=== PATIENT | male | born 1985 | race Caucasian/White ===

== ENCOUNTER → 2016-07-02 | Outpatient (CLI) | payer OTHER ==
--- NOTE | 2016-07-02 10:04 | FL ---
EXAMINATION TYPE: FL UGI air w esophagus DATE OF EXAM: 07/02/2016 9:31 AM COMPARISON: NONE HISTORY: Abdominal pain TECHNIQUE: A double contrast UGI study is performed. FINDINGS: [employer] image of the abdomen shows no gross abnormality. The esophagus shows normal motility and emptying into the stomach. Small hiatal hernia noted with mil d gastroesophageal reflux. No evidence for esophagitis. The stomach shows normal distensibility, peristalsis, and mucosal folds. No evidence of any mass or ulcer disease. No significant gastroesophageal reflux was seen during real time performance of this study. The duodenal bulb, sweep, and proximal small bowel loops are unremarkable. IMPRESSION: Small hiatal hernia noted with mild gastroesophageal reflux. No evidence for esophagitis .
== END ==
LOC: RADFLWHC 08:56
PROVIDERS: ATTEND Surgery
DX: K21.9 Gastro-esophageal reflux disease without esophagitis (principal); K44.9 Diaphragmatic hernia without obstruction or gangrene
CPT/HCPCS: 74246

== ENCOUNTER → 2016-07-02 | Outpatient (CLI) | payer OTHER ==
--- NOTE | 2016-07-02 09:31 | ECHOF ---
Referral Reason:R07.89 chest pain MEASUREMENTS -------- HEIGHT: 162.6 cm WEIGHT: 111.1 kg BP: IVSd: 1.4 cm (0.6 - 1.1) LVIDd: 4.0 cm (3.9 - 5.3) LVPWd: 1.2 cm (0.6 - 1.1) IVSs: 1.5 cm LVIDs: 4.3 cm LVPWs: 1.3 cm Ao Diam: 3.0 cm (2.0 - 3.7) AV Cusp: 2.4 cm (1.5 - 2.6) LA Diam: 4.2 cm (2.7 - 3.8) MV EXCURSION: 21.757 mm (> 18.000) MV EF SLOPE: 119 mm/s (70 - 150) EPSS: 1.1 cm MV E Raza: 0.78 m/s MV DecT: 161 ms MV A Raza: 0.60 m/s MV E/A Ratio: 1.31 RAP: 5.00 mmHg RVSP: 11.33 mmHg FINDINGS -------- Sinus rhythm. This was a technically adequate study. There is mild concentric left ventricular hypertrophy. Overall left ventricular systolic function is normal with, an EF between 55 - 60 %. The right ventricle is normal in size. The left atrium is mildly dilated. The right atrial size is normal. There is mild aortic valve sclerosis. There is no evidence of aortic regurgitation. Mild mitral annular calcification present. Mild mitral regurgitation is present. Mild tricuspid regurgitation present. There is no evidence of pulmonary hypertension. The right ventricular systolic pressure, as measured by Doppler, is 11.33mmHg. There is no pulmonic regurgitation present. The aortic root size is normal. There is no pericardial effusion. CONCLUSIONS -------- 1. There is mild concentric left ventricular hypertrophy. 2. Overall left ventricular systolic function is normal with, an EF between 55 - 60 %. 3. The left atrium is mildly dilated. 4. There is mild aortic valve sclerosis. 5. Mild mitral annular calcification present. 6. Mild mitral regurgitation is present. 7. Mild tricuspid regurgitation present. 8. There is no evidence of pulmonary hypertension. 9. The right ventricular systolic pressure, as measured by Doppler, is 11.33mmHg. SACK DEPARTMENT SUPERVISOR: Valery Guzman RDCS
== END | disposition home or self-care (01) ==
LOC: RADECHMAIN 08:04
PROVIDERS: ATTEND Family Medicine
DX: I34.0 Nonrheumatic mitral (valve) insufficiency (principal); I07.1 Rheumatic tricuspid insufficiency; I35.8 Other nonrheumatic aortic valve disorders
CPT/HCPCS: 93306

== ENCOUNTER → 2018-01-01 | Outpatient (CLI) | payer BC ==
--- NOTE | 2018-01-01 09:03 | US ---
EXAMINATION TYPE: US liver DATE OF EXAM: 01/01/2018 COMPARISON: NONE CLINICAL HISTORY: 32-year-old male R74.8 abnormal levels of other serum enzymes. Elevated liver enzym es TECHNIQUE: Multiple sonographic images of the right upper quadrant are obtained. FINDINGS: EXAM MEASUREMENTS: Liver Length: 16.4 cm Gallbladder Wall: 0.1 cm CBD: 0.3 cm Right Kidney: 10.2 x 4.9 x 4.7 cm Pancreas: Only a small portion of the pancreatic neck is seen. Remainder is obscured by bowel gas. Liver: Slightly coarsened, echogenic appearance. Scanned intercostally, limited by rib shadowing. No focal lesion seen. Gallbladder: wnl Evidence for sonographic Salcido's sign: no CBD: visualized portions wnl, limited by overlying bowel gas Right Kidney: No hydronephrosis. IMPRESSION: 1. Intercostal scanning of the liver limits assessment. It has a slightly coarsened, echogenic appear ance that could represent fatty infiltration or other nonspecific hepatocellular disease. 2. No biliary ductal dilatation.
== END | disposition home or self-care (01) ==
LOC: RADUSWWP 07:00
PROVIDERS: ATTEND Family Medicine
DX: R74.8 Abnormal levels of other serum enzymes (principal)
CPT/HCPCS: 76705

== ENCOUNTER 2018-06-26 23:22 | Observation (INO) | payer BC ==
[2018-06-27 00:03] LABS: Basophils # (A) 0.1 k/uL (0-0.2); Basophils % (A) 1 %; Eosinophils # (A) 0.4 k/uL (0-0.7); Eosinophils % (A) 5 %; HCT 44.2 % (39.0-53.0); Lymphocytes # (A) 2.6 k/uL (1.0-4.8); Lymphocytes % (A) 32 %; MCH 28.6 pg (25.0-35.0); MCHC 33.9 g/dL (31.0-37.0); MCV 84.4 fL (80.0-100.0); Mean Platelet Volume 6.5; Monocytes # (A) 0.5 k/uL (0-1.0); Monocytes % (A) 6 %; Neutrophils # (A) 4.4 k/uL (1.3-7.7); Neutrophils % (A) 54 %; Platelet Count 396 k/uL (150-450); RBC 5.24 m/uL (4.30-5.90); RDW 13.2 % (11.5-15.5)
[2018-06-27 00:12] LABS: ALT 50 U/L (21-72); AST 22 U/L (17-59); Albumin 4.2 g/dL (3.5-5.0); Alkaline Phosphatase 77 U/L (38-126); Anion Gap 10 mmol/L; Blood Urea Nitrogen 18 mg/dL (9-20); Calcium 9.5 mg/dL (8.4-10.2); Carbon Dioxide 23 mmol/L (22-30); Chloride 106 mmol/L (98-107); Glucose 103 mg/dL (74-99); Potassium 4.2 mmol/L (3.5-5.1); Sodium 139 mmol/L (137-145); Total Bilirubin 0.4 mg/dL (0.2-1.3); Total Protein 7.4 g/dL (6.3-8.2)
[2018-06-27 00:15] LABS: Partial Thromboplastin Time 26.6 sec (22.0-30.0); Prothrombin Time 10.3 sec (9.0-12.0)
--- NOTE | 2018-06-27 00:54 | ED ---
Chest Pain HPI - General Chief Complaint: Chest Pain Stated Complaint: SOB/Chest pain Time Seen by Provider: 06/26/18 23:38 Source: patient, RN notes reviewed, old records reviewed Mode of arrival: ambulatory Limitations: no limitations - History of Present Illness Initial Comments: This is a 32 year old male to the ED for evaluation of chest pain. Patient has no history of chest pain. Patient has history of high blood pressure. Strong family history of heart disease. Patient recently seen family doctor is having chest pain for 2 weeks with exertional shortness of breath. No travel history no sick contacts. No cough or congestion - Related Data Allergies Allergy/AdvReac Type Severity Reaction Status Date / Time No Known Allergies Allergy Verified 06/26/18 23:30 Review of Systems ROS Statement: Those systems with pertinent positive or pertinent negative responses have been documented in the HPI. ROS Other: All systems not noted in ROS Statement are negative. EKG Findings - EKG Comments: EKG Findings:: EKG shows normal sinus rhythm Past Medical History Past Medical History: Hypertension History of Any Multi-Drug Resistant Organisms: None Reported Past Surgical History: Orthopedic Surgery Additional Past Surgical History / Comment(s): gastro Past Psychological History: No Psychological Hx Reported Smoking Status: Light tobacco smoker Past Alcohol Use History: Occasional Past Drug Use History: None Reported General Exam Limitations: no limitations General appearance: alert, in no apparent distress Head exam: Present: atraumatic, normocephalic, normal inspection Eye exam: Present: normal appearance, PERRL, EOMI. Absent: scleral icterus, conjunctival injection, periorbital swelling ENT exam: Present: normal exam, mucous membranes moist Neck exam: Present: normal inspection. Absent: tenderness, meningismus, lymphadenopathy Respiratory exam: Present: normal lung sounds bilaterally. Absent: respiratory distress, wheezes, rales, rhonchi, stridor Cardiovascular Exam: Present: regular rate, normal rhythm, normal heart sounds. Absent: systolic murmur, diastolic murmur, rubs, gallop, clicks GI/Abdominal exam: Present: soft, normal bowel sounds. Absent: distended, tenderness, guarding, rebound, rigid Extremities exam: Present: normal inspection, full ROM, normal capillary refill. Absent: tenderness, pedal edema, joint swelling, calf tenderness Back exam: Present: normal inspection Neurological exam: Present: alert, oriented X3, CN II-XII intact Psychiatric exam: Present: normal affect, normal mood Skin exam: Present: warm, dry, intact, normal color. Absent: rash Course Vital Signs 06/26/18 23:24 Temperature 98.4 F Pulse Rate 70 Respiratory 18 Rate Blood Pressure 146/96 O2 Sat by Pulse 99 Oximetry - Reevaluation(s) Reevaluation #1: 06/27/18 00:53 Medical record is reviewed including prior x-ray Reevaluation #2: 06/27/18 00:53 A she is still complaining of chest pain Chest Pain MDM - MDM 32 male the ER with persistent chest pain chest pain shortness of breath on exertion. Patient will be admitted at this time for cardiac observation Critical Care Time Critical Care Time: Yes Total Critical Care Time: 31 Disposition Clinical Impression: Chest pain Disposition: ADMITTED IP TO THIS HOSP Condition: Undetermined Instructions (If sedation given, give patient instructions): Chest Pain (ED) Referrals: Rajendra Givens DO [Primary Care Provider] - 1-2 days
[2018-06-27] MEDS ORDERED: NITROGLYCERIN SL TABS 0.4 MG TAB SUBLINGUAL PRN (00:56)
[2018-06-27] MEDS ORDERED: ASPIRIN 81 MG PO STA (01:11)
[2018-06-27] MEDS ORDERED: SODIUM CHLORIDE 0.9% 1,000 ML IV SCH (01:15)
[2018-06-27] MEDS: LOSARTAN 50 MG TAB PO SCH (10:41)
--- NOTE | 2018-06-27 12:04 | P.CRDCN ---
History of Present Illness History of present illness: This is a pleasant 32-year-old male past medical history significant for hypertension, gastroesophageal reflux disease and asthma. He also chews tobacco daily. He denies history of coronary artery disease, dyslipidemia or diabetes mellitus. We have been asked to see him in consultation for symptoms of chest discomfort. He states for the previous couple of weeks off and on intermittently he is having symptoms of heavy pressure sensation in the midsternal region. Yesterday he woke up in his normal state of health and went to work. He was sitting down at his desk in front of his computer screen when he again had an episode of heavy pressure sensation in the midsternal region. There was some radiation to the left arm with numbness and tingling in his hand. He also describes feeling mildly short of breath, having a headache and blurred vision. He states his blood pressure has been elevated and recently saw his primary care physician and his Toprol was doubled from 25-50 mg daily. He called his primary care physician and was able to make an appointment to get in. He states that he went there is blood pressure was again elevated. He underwent an EKG that he was told was abnormal that he had suffered a heart attack in the past. He was sent here for a chest xray that was normal. While he was here for that he again had another episode of chest pain and pressure. He is seen and examined resting comfortably in bed in no acute distress with family at the bedside. He is currently chest pain free. EKG reveals sinus mechanism with no acute ST or T wave abnormalities noted. Chest x-ray is negative for acute cardiopulmonary process. Laboratory data reviewed, WBC 8, hemoglobin 15, platelets 396, d-dimer 0.2, sodium 139, potassium 4.2, creatinine 0.81, magnesium 2.0, cardiac enzymes negative 2, NT proBNP less than 11. Current cardiac medications include Toprol 50 mg daily and aspirin 81 mg daily. Most recent stress test performed 2016 was negative for stress-induced cardiac ischemia. Echocardiogram obtained 2016 reveals preserved left ventricular systolic function with ejection fraction 55-60%. At the time of my exam: CONSTITUTIONAL: Denies fever. Denies chills. EYES: Denies blurred vision. Denies vision changes. Denies eye pain. EARS, NOSE, MOUTH & THROAT: Denies headache. Denies sore throat. Denies ear pain. CARDIOVASCULAR: Denies chest pain. Denies shortness of breath. Denies orthopnea. Denies PND. Denies palpitations. RESPIRATORY: Denies cough. GASTROINTESTINAL: Denies abdominal pain. Denies diarrhea. Denies constipation. Denies nausea. Denies vomiting. MUSCULOSKELETAL: Denies myalgias. INTEGUMENTARY: Denies pruitis. Denies rash. NEUROLOGIC: Denies numbness. Denies tingling. Denies weakness. PSYCHIATRIC: Denies anxiety. Denies depression. ENDOCRINE: Denies fatigue. Denies weight change. Denies polydipsia. Denies polyurina. GENITOURINARY: Denies burning, hematuria or urgency with micturation. HEMATOLOGIC: Denies history of anemia. Denies bleeding. Blood pressure 138/90 heart rate 60 afebrile maintaining oxygen saturation on room air GENERAL: This is a 32-year-old occasion male in no apparent distress at the time of my examination. Obese. HEENT: Head is atraumatic, normocephalic. Pupils are equal, round. Sclerae anicteric. Conjunctivae are clear. Mucous membranes of the mouth are moist. Neck is supple. There is no jugular venous distention. No carotid bruit is heard. LUNGS: Clear to auscultation no wheezes, rales or rhonchi. No chest wall tenderness is noted on palpation or with deep breathing. HEART: Regular rate and rhythm without murmurs, rubs or gallops. S1 and S2 heard. ABDOMEN: Soft, nontender. Bowel sounds are heard. No organomegaly noted. EXTREMITIES: No evidence of peripheral edema and no calf tenderness noted. VASCULAR: Radial and dorsalis pedis pulses palpated, no evidence of clubbing. NEUROLOGIC: Patient is awake, alert and oriented x3. ASSESSMENT Chest pain, atypical. An acute coronary event has been ruled out. Hypertension, uncontrolled on toprol Obesity, BMI 34 Chronic nicotine dependence PLAN Acute coronary event has ruled out. Obtain 2-D echocardiogram and Doppler study to assess cardiac structure and function. Hold Toprol and add losartan 50 mg daily for blood pressure control. Will pursue stress testing as an outpatient once blood pressure is under better control. Thank you kindly for this consultation. Nurse Practitioner note has been reviewed, I agree with a documented findings and plan of care. Patient was seen and examined. Past Medical History Past Medical History: Asthma, GERD/Reflux, Hypertension Additional Past Medical History / Comment(s): Asthma as a child, heart murmur as a child, small hiatal hernia, esophageal stricture. History of Any Multi-Drug Resistant Organisms: None Reported Past Surgical History: Orthopedic Surgery Additional Past Surgical History / Comment(s): EGD with dilation, L rotator cuff repair, L ankle fracture with screws since removed. Additional Past Anesthesia/Blood Transfusion Reaction / Comment(s): When L ankle screws were removed, pt states they had a hard time getting him to sleep for surgery. Smoking Status: Never smoker - Past Family History Father Family Medical History: Diabetes Mellitus Additional Family Medical History / Comment(s): Paternal grandfather had MIs with the first one happening when he was 40 yrs old. He ended up having a heart transplant. Pts Great grandfather had a DC but pt does not know at what age. Mother Family Medical History: No Reported History Additional Family Medical History / Comment(s): Mother is healthy. Medications and Allergies Home Medications Medication Instructions Recorded Confirmed Type Aspirin EC [Ecotrin Low Dose] 81 mg PO DAILY 06/27/18 06/27/18 History Metoprolol Succinate (ER) [Toprol 50 mg PO DAILY 06/27/18 06/27/18 History Xl] Allergies Allergy/AdvReac Type Severity Reaction Status Date / Time No Known Allergies Allergy Verified 06/27/18 07:05 Physical Exam Vitals: Vital Signs Temp Pulse Pulse Resp BP BP Pulse Ox 06/27/18 08:20 60 18 138/90 97 06/27/18 06:58 62 16 139/88 96 06/27/18 04:21 97.9 F 58 L 16 140/92 98 06/27/18 01:16 131/91 06/26/18 23:24 98.4 F 70 18 146/96 99 Intake and Output 06/26/18 06/27/18 06/27/18 22:59 06:59 14:59 Other: Weight 111.13 kg Results 06/26/18 23:10 06/26/18 23:10 Cardiac Enzymes 06/26/18 06/26/18 06/27/18 Range/Units 23:10 23:10 05:49 AST 22 (17-59) U/L Troponin I <0.012 <0.012 (0.000-0.034) ng/mL Coagulation 06/26/18 Range/Units 23:10 PT 10.3 (9.0-12.0) sec APTT 26.6 (22.0-30.0) sec CBC 06/26/18 Range/Units 23:10 WBC 8.0 (3.8-10.6) k/uL RBC 5.24 (4.30-5.90) m/uL Hgb 15.0 (13.0-17.5) gm/dL Hct 44.2 (39.0-53.0) % Plt Count 396 (150-450) k/uL Comprehensive Metabolic Panel 06/26/18 Range/Units 23:10 Sodium 139 (137-145) mmol/L Potassium 4.2 (3.5-5.1) mmol/L Chloride 106 (98-107) mmol/L Carbon Dioxide 23 (22-30) mmol/L BUN 18 (9-20) mg/dL Creatinine 0.81 (0.66-1.25) mg/dL Glucose 103 H (74-99) mg/dL Calcium 9.5 (8.4-10.2) mg/dL AST 22 (17-59) U/L ALT 50 (21-72) U/L Alkaline Phosphatase 77 (38-126) U/L Total Protein 7.4 (6.3-8.2) g/dL Albumin 4.2 (3.5-5.0) g/dL Current Medications Generic Name Dose Route Start Last Admin Trade Name Freq PRN Reason Stop Dose Admin Aspirin 325 mg 06/28/18 09:00 Aspirin PO DAILY ERIN Sodium Chloride 1,000 mls @ 20 mls/hr 06/27/18 01:15 06/27/18 07:38 Saline 0.9% IV 20 mls/hr .Q24H ERIN Administration Losartan Potassium 50 mg 06/27/18 10:15 06/27/18 10:41 Cozaar PO 50 mg DAILY ERIN Administration Nitroglycerin 0.4 mg 06/27/18 00:56 Nitrostat SUBLINGUAL Q5M PRN Chest Pain Intake and Output 06/26/18 06/27/18 06/27/18 22:59 06:59 14:59 Other: Weight 111.13 kg 06/26/18 23:10 06/26/18 23:10
--- NOTE | 2018-06-27 16:43 | MR ---
EXAMINATION TYPE: MR brain and iac wo/w con DATE OF EXAM: 06/27/2018 COMPARISON: None HISTORY: headache,visual changes, left arm numbness TECHNIQUE: Multiplanar, multisequence images of the brain and brainstem is performed without and with IV contras t, utilizing 11.5 mL intravenous Gadavist . Small [id number], high-resolution images obtained thro [facility] the internal auditory canals FINDINGS: Diffusion weighted images demonstrate no evidence of a recent infarct or other diffusion ab normality. There is no extra-axial fluid collection. Punctate hyperintensities in the right frontal lobe are present on inversion recovery T2-weighted sequences, 4 lesions are present, largest lesion m easures 3 mm. The ventricular system and cisternal spaces are normal in size and appearance. The bra in volume is age appropriate. Midline structures demonstrate normal morphology, there is a partially empty sella. The craniocervic al junction appears within normal limits. Internal auditory canals show no abnormal enhancement. Pos t contrast images demonstrate no abnormal enhancement. The dural venous sinuses appear patent. The vi sualized sinuses are remarkable for inflammatory change within the ethmoid air cells, left maxillary sinus and the globes are intact. IMPRESSION: Nonspecific foci of white demyelination of questionable clinical significance, findings c ould be related to migraine headaches, hypertension, vasculitis, multiple sclerosis not excluded. Mil d sinus disease. No cerebellopontine angle mass, internal auditory canals are normal.
--- NOTE | 2018-06-27 17:26 | HP ---
HISTORY AND PHYSICAL DATE OF ADMISSION: 06/27/2018 DATE OF SERVICE: 06/27/2018 PRESENTING COMPLAINT: Chest pain. HISTORY OF PRESENTING COMPLAINT: This is a very pleasant 32-year-old patient of Dr. Rajendra Givens who is normally in good health. Patient does take medication for blood pressure. Patient about 6:00 in the morning had gone to work and felt left-sided chest pressure, felt like a sharp pain, something like an elephant sitting on the chest. He also had some discomfort in the left arm. The patient a week ago had some headache on and off, not interfering with work, and he thought that maybe also his vision was involved. There was no fever, no chills. He does feel tired. Blood pressure was running high, 160/110. Because of his multitude of symptoms, he decided to come in. Cardiology was consulted. The patient has no focal symptoms right now. No weakness. Able to get about and do his work. Denies use of any recreational drugs. No fever. No chills. REVIEW OF SYSTEMS: CONSTITUTIONAL: None. HEENT: As above. RESPIRATORY: None. CARDIOVASCULAR: As above. GASTROINTESTINAL: None. GENITOURINARY: None. MUSCULOSKELETAL: None. DERMATOLOGICAL: None. HEMATOLOGICAL: None. LYMPHATICS: None. PSYCHIATRY: None. NEUROLOGICAL: As above. PAST MEDICAL HISTORY: 1. Asthma. 2. GERD. 3. Hypertension. 4. Asthma as a child. 5. Small hiatal hernia. 6. Esophageal stricture. PAST SURGICAL HISTORY: 1. EGD with dilatation. 2. Left rotator cuff repair. 3. Left ankle fracture with screws. SOCIAL HISTORY: with 2 children. No smoking. Does chew tobacco. No recreational drugs. 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 FAMILY HISTORY: Grandfather had heart attacks. HOME MEDICATIONS: 1. Toprol XL 50 mg a day. 2. Aspirin 81 mg a day. ALLERGIES: NONE. PHYSICAL EXAMINATION: VITAL SIGNS ON PRESENTATION: Temperature 98.4, pulse 70, respiration 18, blood pressure 146/96, pulse 99% on room air. GENERAL APPEARANCE: Well built; BMI 34.2. Sitting up, comfortable. EYES: Pupils equal. Conjunctivae normal. HEENT: External appearance of nose and ears normal. Oral cavity normal. NECK: JVD not raised. Mass not palpable. RESPIRATORY: Effort normal. Lungs are clear. CARDIOVASCULAR: First and second sounds normal. No edema. ABDOMEN: Soft, non-tender. Liver and spleen not palpable. LYMPHATIC: No lymph node palpable in neck or axillae. PSYCHIATRY: Alert and oriented x3. Mood and affect normal. NEUROLOGICAL: Pupils equal. Cranial nerves grossly intact. Power and sensation grossly intact. INVESTIGATIONS: White count 8, hemoglobin 15.0, potassium 4.2. BUN and creatinine are normal. Troponin x3 negative. ASSESSMENT: 1. Patient has chest pressure, nonspecific, with variable symptoms. Cardiology opinion has been sought. 2. Obesity; body mass index 34.2. 3. Essential hypertension. Patient being switched over to losartan from the beta sonido is a good choice as per Cardiology. 4. Nonspecific neuro symptoms with occasional headache, some vision changes, but not persistent. No clinical findings. Will do an MRI of the brain. PLAN: Patient will be switched to losartan. MRI of the brain will be done with and without contrast. Two-D echocardiogram has been ordered by Cardiology. Will watch the patient. Will follow. MMODL / IJN: [id number] /
--- NOTE | 2018-06-27 19:24 | ECHOF ---
Referral Reason:cp, htn MEASUREMENTS -------- HEIGHT: 180.3 cm WEIGHT: 111.1 kg BP: 138/90 RVIDd: 3.2 cm (< 3.3) IVSd: 1.0 cm (0.6 - 1.1) LVIDd: 4.7 cm (3.9 - 5.3) LVPWd: 1.0 cm (0.6 - 1.1) IVSs: 1.2 cm LVIDs: 3.3 cm LVPWs: 1.2 cm LAESV Index (A-L): 16.24 ml/m Ao Diam: 3.4 cm (2.0 - 3.7) AV Cusp: 2.1 cm (1.5 - 2.6) LA Diam: 2.9 cm (2.7 - 3.8) MV EXCURSION: 17.701 mm (> 18.000) MV EF SLOPE: 119 mm/s (70 - 150) EPSS: 0.8 cm MV E Raza: 0.92 m/s MV DecT: 234 ms MV A Raza: 0.61 m/s MV E/A Ratio: 1.51 RAP: 5.00 mmHg RVSP: 9.84 mmHg FINDINGS -------- Resting bradycardia (HR<60bpm). This was a technically good study. The left ventricular size is normal. There is borderline concentric left ventricular hypertrophy. Overall left ventricular systolic function is low-normal with, an EF between 50 - 55 %. The right ventricle is normal in size and function. Normal LA size by volume 22+/-6 ml/m2. The right atrium is normal in size. Aortic valve is trileaflet and is mildly thickened. Trace amount of aortic regurgitation. There is no evidence of aortic stenosis. The mitral valve leaflets are mildly thickened. There is trace to mild mitral regurgitation. Trace tricuspid regurgitation present. Right ventricular systolic pressure is normal at < 35 mmHg. There is no evidence of pulmonary hypertension. Trace/mild (physiologic) pulmonic regurgitation. The aortic root size is normal. Normal inferior vena cava with normal inspiratory collapse consistent with estimated right atrial pre ssure of 5 mmHg. CONCLUSIONS -------- 1. Resting bradycardia (HR<60bpm). 2. This was a technically good study. 3. The left ventricular size is normal. 4. There is borderline concentric left ventricular hypertrophy. 5. Overall left ventricular systolic function is low-normal with, an EF between 50 - 55 %. 6. Normal LA size by volume 22+/-6 ml/m2. 7. Aortic valve is trileaflet and is mildly thickened. 8. Trace amount of aortic regurgitation. 9. The mitral valve leaflets are mildly thickened. 10. There is trace to mild mitral regurgitation. 11. Trace tricuspid regurgitation present. 12. Right ventricular systolic pressure is normal at < 35 mmHg. 13. There is no evidence of pulmonary hypertension. 14. Trace/mild (physiologic) pulmonic regurgitation. 15. The aortic root size is normal. FERMENTATION SCIENTIST: Nemesio Lea RDCS
[2018-06-28 01:17] LABS: Cholesterol 148 mg/dL (<200); HDL Cholesterol 29 mg/dL (40-60); LDL Cholesterol,Calculated 80 mg/dL (0-99); Triglycerides 194 mg/dL (<150)
[2018-06-28] MEDS: LOSARTAN 50 MG TAB PO SCH (08:52)
[2018-06-28] MEDS ORDERED: ASPIRIN 325 MG TAB PO SCH (09:00)
[2018-06-28 12:06] VITALS: BP 131/89; PULSE 73; RESP 16; TEMP 97.6
--- NOTE | 2018-06-28 15:04 | P.PN ---
Subjective Progress Note Date: 06/28/18 This is a 32-year-old gentleman with family history of ischemic heart disease who was admitted with uncontrolled hypertension and atypical chest pains. Patient was started on losartan. His blood pressure is better controlled. Patient is feeling better. Still having some atypical pains. Echo showed normal LV function. Patient is advised to continue current medical therapy. He 'll be seen as an outpatient and will be evaluated by stress test. Minimal patient will stay on current medical therapy Objective - Vital Signs Vital signs: Vital Signs Temp 97.6 F 06/28/18 12:00 Pulse 73 06/28/18 12:00 Resp 16 06/28/18 12:00 BP 131/89 06/28/18 12:00 Pulse Ox 97 06/28/18 12:00 Intake & Output 06/27/18 06/28/18 06/28/18 18:59 06:59 18:59 Other: Voiding Method Toilet Toilet Toilet # Voids 2 - Exam GENERAL EXAM: Patient is alert and oriented and doesn't appear to be in any acute distress HEENT: Normocephalic. Normal reaction of pupils, equal size, normal range of extraocular motion. No erythema or exudates in the throat. NECK: No masses, no nuchal rigidity. CHEST: No chest wall deformity. LUNGS: Equal air entry with no crackles or wheeze. HEART: S1 and S2 normal with no audible mumurs or gallops. Regular rhythm, femorals equal on both sides..] ABDOMEN: No hepatosplenomegaly, normal bowel sounds, no guarding or rigidity. SKIN: No rashes CENTRAL NERVOUS SYSTEM: No focal deficits. EXTREMITIES: [No cyanosis, clubbing or edema.] - Labs CBC & Chem 7: 06/26/18 23:10 06/26/18 23:10 Labs: Abnormal Lab Results - Last 24 Hours (Table) 06/26/18 Range/Units 23:10 Triglycerides 194 H (<150) mg/dL HDL Cholesterol 29 L (40-60) mg/dL Assessment and Plan (1) Hypertension Status: Acute Code(s): I10 - ESSENTIAL (PRIMARY) HYPERTENSION SNOMED Code(s) : 91819491 (2) Chest pain Status: Acute Code(s): R07.9 - CHEST PAIN, UNSPECIFIED SNOMED Code(s): 20132248 Plan: Blood pressure is well controlled. Chest pains are atypical. Cardec enzyme sets are negative. EKG did not reveal acute changes. Patient is being discharged home. Outpatient evaluation by stress test.
--- NOTE | 2018-06-29 08:22 | DS ---
DISCHARGE SUMMARY DATE OF ADMISSION: June 27, 2018. DATE OF DISCHARGE: June 28, 2018. FINAL DIAGNOSES: 1. Chest pain could be musculoskeletal. 2. Obesity BMI 34.2. 3. Essential hypertension. 4. Nonspecific cephalgia. HOSPITAL COURSE: This patient with nonspecific symptoms including headaches, dizziness, sometimes weakness, chest pain, seen by Cardiology for outpatient stress test. I did get a MRI of the brain done, had nonspecific findings. Nothing acute. Discussed with the patient's family. We will have the patient follow up with Neurology in the outpatient setting. 2D echocardiogram showed preserved LV function. CONSULTATION: Dr. Ross from Cardiology. PHYSICAL EXAMINATION: VITAL SIGNS: Temperature 97.6, pulse 73, respiratory rate 16, blood pressure 113/89. LUNGS: Clear. Cardiovascular: 1st and 2nd sounds normal. DISCHARGE MEDICATIONS: 1. Aspirin 81 mg a day. 2. Cozaar 50 mg a day. 3. Toprol-XL was discontinued. Follow up with Dr. Brandyn Geller in 1 week. Follow up with Dr. James in 1 week. Follow up with Dr. Givens in three days. Copy to Dr. Givens. MMODL / IJN: [id number] /
== END 2018-06-28 14:40 | disposition home or self-care (01) ==
LOC: EC 23:22 → 1SOBS 06-27 00:52
PROVIDERS: ADMIT Hospitalist; ATTEND Hospitalist
DX: R07.89 Other chest pain (principal); E66.9 Obesity, unspecified; Z68.34 Body mass index [BMI] 34.0-34.9, adult; K44.9 Diaphragmatic hernia without obstruction or gangrene; K21.9 Gastro-esophageal reflux disease without esophagitis; R51 Headache; R42 Dizziness and giddiness; H53.9 Unspecified visual disturbance; J45.909 Unspecified asthma, uncomplicated; I10 Essential (primary) hypertension; F17.220 Nicotine dependence, chewing tobacco, uncomplicated; I25.2 Old myocardial infarction; Z79.82 Long term (current) use of aspirin; Z79.899 Other long term (current) drug therapy; Z83.3 Family history of diabetes mellitus; Z82.49 Family history of ischemic heart disease and other diseases of the circulatory system
CPT/HCPCS: 99291; 36415 ×2; 93005; 93306; 85379; 83880; 80061; 80053; 83735; 84100; 84484 ×2; 85025; 85610; 85730; 70553; G0378 ×2; A9585

== ENCOUNTER → 2018-06-26 | Outpatient (CLI) | payer BC ==
--- NOTE | 2018-06-26 15:41 | XR ---
EXAMINATION TYPE: XR chest 2V DATE OF EXAM: 06/26/2018 COMPARISON: NONE HISTORY: Chest pain and shortness of breath today. TECHNIQUE: Frontal and lateral views of the chest are obtained. FINDINGS: There is no focal air space opacity, pleural effusion, or pneumothorax seen. The cardiac silhouette size is within normal limits. The osseous structures are intact. IMPRESSION: No acute cardiopulmonary process.
== END | disposition home or self-care (01) ==
LOC: RADXRMAIN 15:03
PROVIDERS: ATTEND Family Medicine
DX: R06.00 Dyspnea, unspecified (principal)
CPT/HCPCS: 71046

== ENCOUNTER → 2018-08-01 | Outpatient (CLI) | payer BC ==
--- NOTE | 2018-08-12 09:08 | EM ---
EVENT MONITOR Patient in the event monitor had several recordings. Some of the recordings were when he felt lightheaded and dizzy and at that time, he was in a sinus rhythm with the sinus tachycardia, rate of 111 beats per minute. Most of the tracings appeared to be sinus with sinus tachycardia. There was no significant arrhythmia noted. When patient felt racing heart on 1 occasion, she had 88 beats per minute. When she had sharp chest pains, heart rate was about 87 beats per minute. There is no evidence of any significant tachy or bradyarrhythmias on this event monitor. FINAL IMPRESSION: This 1 week event monitor reveals sinus rhythm and sinus tachycardia. There was no evidence of any significant arrhythmia and specifically when patient felt her symptoms of dizziness, lightheadedness or a sensation of racing heart, she was in a sinus rhythm. MMODL / IJN: [id number] /
== END | disposition home or self-care (01) ==
LOC: RADECHMAIN 11:54
PROVIDERS: ATTEND Family Medicine
DX: R00.0 Tachycardia, unspecified (principal); R07.9 Chest pain, unspecified
CPT/HCPCS: 93270